=== PATIENT | female | born 1970 | race American Indian/Alaskan Native ===

== ENCOUNTER 2017-07-26 12:30 | Inpatient (IN) | payer OTHER ==
[2017-07-26 13:08] LABS: Mean Corpuscular HGB Conc 29 % (30-34); Platelet Count 260 K/mm3 (140-440); Red Blood Count 4.48 M/mm3 (3.65-5.03); White Blood Count 18.1 K/mm3 (4.5-11.0)
[2017-07-26 13:15] LABS: Hematocrit 29.8 % (30.3-42.9); Hemoglobin 8.6 gm/dl (10.1-14.3); Mean Corpuscular Hemoglobin 19 pg (28-32); Mean Corpuscular Volume 67 fl (79-97); Red Cell Distribution Width 20.5 % (13.2-15.2)
[2017-07-26 13:20] LABS: Alanine Aminotransferase 7 units/L (7-56); Albumin 3.9 g/dL (3.9-5); Albumin/Globulin Ratio 1.4 %; Alkaline Phosphatase 49 units/L (35-129); Anion Gap 16 mmol/L; BUN/Creatinine Ratio 13; Blood Urea Nitrogen 8 mg/dL (7-17); Calcium 8.2 mg/dL (8.4-10.2); Carbon Dioxide 24 mmol/L (22-30); Chloride 100.4 mmol/L (98-107); Glucose 95 mg/dL (65-100); Lipase 21 units/L (13-60); Potassium 3.7 mmol/L (3.6-5.0); Sodium 137 mmol/L (137-145); Total Protein 6.6 g/dL (6.3-8.2)
[2017-07-26] MEDS ORDERED: SUBLIMAZE IV ONE (13:46)
[2017-07-26 13:53] LABS: Basophils % (Manual) 0 % (0.0-1.8); Blastocytes % (Manual) 0 %; Eosinophils % (Manual) 0 % (0.0-4.3); Hypochromasia 2+
[2017-07-26 13:54] LABS: Anisocytosis 2+; Diff Status Complete; Microcytosis 2+; Poikilocytosis 1+
--- NOTE | 2017-07-26 15:29 | Ultrasound Report ---
Pelvic ultrasound: Pelvic pain. Endovaginal and transabdominal imaging demonstrated an anteverted uterus measuring approximately 9.8 x 12.5 x 17 cm. There is a large fundal mass which is circumscribed and diffusely inhomogeneous. It measures approximately 8.4 x 10.7 x 13 cm. Mild increased internal vascularity. The endometrium is obscured. Neither ovary is identified. No free fluid noted. Impressions: Uterine enlargement with large fundal fibroid.
--- NOTE | 2017-07-26 15:47 | Emergency Department Report ---
HPI - General Chief Complaint: Abdominal Pain Time Seen by Provider: 07/26/17 13:03 - HPI HPI: This is a 47-year-old female presents to the emergency department, sent in by a [facility] stand alone ER, with complaint of lower abdominal and/or pelvic pain with some nausea that has been going on for a few months but worsened since early this morning. The pain got to be so bad that she has been having trouble walking. She feels as if the area is distended. She has a history of uterine fibroids. She did not take anything for her symptoms prior to presentation. The patient had a CT scan of the abdomen and pelvis with IV contrast at the [facility] facility and was found to have a very large uterine fibroid with some mass effect upon the bladder. At that time as well, the patient had a pelvic exam done that showed some mild faint yellowish discharge and cervical motion tenderness. The patient was started on Rocephin and Flagyl. They're attentive that time was to admit the patient to [facility] as part of the [facility] system with the patient's insurance has lapsed and/or there was no beds available and the patient was sent to [facility] for further evaluation and treatment. She did have a fever when she arrived at their facility and has felt febrile with some chills. ED Past Medical Hx - Past Medical History Previous Medical History?: Yes Additional medical history: uterine fibroids - Surgical History Past Surgical History?: No - Social History Smoking Status: Never Smoker Substance Use Type: None - Medications Home Medications: Home Medications Medication Instructions Recorded Confirmed Last Taken Type Amoxicillin 500 mg PO TID 14 Days #90 capsule 07/29/17 Unknown Rx Doxycycline [Vibramycin CAP] 100 mg PO Q12HR 14 Days #28 capsule 07/29/17 Unknown Rx Ferrous Sulfate [Feosol 325 MG tab] 325 mg PO TID #90 tablet 07/29/17 Unknown Rx traMADol [Ultram] 50 mg PO Q6HR PRN #30 tablet 07/29/17 Unknown Rx ED Review of Systems ROS: Stated complaint: ABD PAIN Other details as noted in HPI Comment: All other systems reviewed and negative Constitutional: chills, fever Eyes: denies: eye pain, eye discharge, vision change ENT: denies: ear pain, throat pain Respiratory: denies: cough, shortness of breath, wheezing Cardiovascular: denies: chest pain, palpitations Gastrointestinal: abdominal pain, nausea Genitourinary: discharge. denies: urgency, dysuria Musculoskeletal: denies: back pain, joint swelling, arthralgia Skin: denies: rash, lesions Neurological: denies: headache, weakness, paresthesias Physical Exam - Physical Exam Vital Signs: Vital Signs 07/26/17 13:00 Temperature 99.2 F Pulse Rate 83 Respiratory 20 Rate Blood Pressure 124/87 [Left] O2 Sat by Pulse 97 Oximetry Physical Exam: GENERAL: The patient is well-developed well-nourished. HENT: Normocephalic. Atraumatic. Patient has moist mucous membranes. EYES: Extraocular motions are intact. Pupils equal reactive to light bilaterally. NECK: Supple. Trachea is midline. CHEST/LUNGS: Clear to auscultation. There is no respiratory distress noted. HEART/CARDIOVASCULAR: Regular. There is no tachycardia. There is no gallop rub or murmur. ABDOMEN: Abdomen is soft. There is some tenderness palpation to the lower half of the abdomen. mild guarding. Patient has normal bowel sounds. There is some lower abdominal and/or pelvic distention and some firmness that appears consistent with a mass. SKIN: Skin is warm and dry. NEURO: The patient is awake, alert, and oriented. The patient is cooperative. The patient has no focal neurologic deficits. The patient has normal speech. MUSCULOSKELETAL: There is no tenderness or deformity. There is no limitation range of motion. There is no evidence of acute injury. : Cervical motion tenderness. There is thin yellowish discharge in the vaginal vault. ED Course Vital Signs 07/26/17 13:00 Temperature 99.2 F Pulse Rate 83 Respiratory 20 Rate Blood Pressure 124/87 [Left] O2 Sat by Pulse 97 Oximetry - Consultations Consultation #1: I spoke with the HARDWARE INSTALLATION COORDINATOR on-call, Dr. Griffin, who did not feel that based on the patient's marital status that it is a high likelihood that the patient has pelvic inflammatory disease. I spoke with the hospitalist, Dr. Berkowitz, who has agreed to admit the patient to his service and he will consult HARDWARE INSTALLATION COORDINATOR if necessary. 07/26/17 16:35 ED Medical Decision Making - Lab Data Result diagrams: 07/29/17 07:59 07/29/17 04:46 - Radiology Data Radiology results: report reviewed Pelvic ultrasound: Pelvic pain. Endovaginal and transabdominal imaging demonstrated an anteverted uterus measuring approximately 9.8 x 12.5 x 17 cm. There is a large fundal mass which is circumscribed and diffusely inhomogeneous. It measures approximately 8.4 x 10.7 x 13 cm. Mild increased internal vascularity. The endometrium is obscured. Neither ovary is identified. No free fluid noted. Impressions: Uterine enlargement with large fundal fibroid. Transcribed By: SLY Dictated By: KACI NAVAS MD Electronically Authenticated By: KACI NAVAS MD Signed Date/Time: 07/26/17 1513 - Medical Decision Making The patient has a large fibroid tumor. It is palpable and seen on U/S. Wet prep negative. Leukocytosis with bandemia. anemia with Hb of 8.6. CT at [facility] only showed fibroid as well. No appendicitis. She had a fever at [facility] as well. With leukocytosis and fever she has SIRS criteria. G&C sent. Waiting on Urinalysis. Concern for PID but no STD or vaginal infection seen thus far and OB /SALES MARKETING DIRECTOR does not feel there is a high likelihood and the patient already recieved Rocephin and Flagyl at [facility]. She will be admitted to hospitalist. - Differential Diagnosis SIRS, Sepsis, PID, Malignancy, UTI Critical Care Time: No Critical care attestation.: If time is entered above; I have spent that time in minutes in the direct care of this critically ill patient, excluding procedure time. ED Disposition Clinical Impression: Pelvic pain, SIRS (systemic inflammatory response syndrome) Leukocytosis Qualifiers: Leukocytosis type: bandemia Qualified Code(s): D72.825 - Bandemia Abdominal pain Qualifiers: Abdominal location: lower abdomen, unspecified Qualified Code(s): R10.30 - Lower abdominal pain, unspecified Fibroid tumor Qualifiers: Uterine leiomyoma location: unspecified location Qualified Code(s): D25.9 - Leiomyoma of uterus, unspecified Anemia Qualifiers: Anemia type: other cause Other causes of anemia: acute posthemorrhagic Qualified Code(s): D62 - Acute posthemorrhagic anemia Disposition: OP ADMIT IP TO THIS HOSP Is pt being admited?: Yes Condition: Stable Time of Disposition: 17:39
[2017-07-26] MEDS ORDERED: NACL 0.9% 1000 ML 1,000 ML IV ONE (17:46)
[2017-07-26] MEDS ORDERED: TYLENOL PO ONE (18:14)
--- NOTE | 2017-07-26 22:06 | History and Physical Report ---
History of Present Illness Date of examination: 07/26/17 Date of admission: 07/26/17 17:44 Chief complaint: CC: Lower abd pain -severe 1 mth History of present illness: JAIRO: 47-year-old AAFpresents to the emergency department,with complaint of lower abdominal and/or pelvic pain with some nausea that has been going on for a few months but worsened since early this morning. The pain got to be so bad that she has been having trouble walking. She feels as if the area is distended. She has a history of uterine fibroids. She did not take anything for her symptoms prior to presentation. The patient had a CT scan of the abdomen and pelvis with IV contrast at the [place] facility and was found to have a very large uterine fibroid with some mass effect upon the bladder. At that time as well, the patient had a pelvic exam done that showed some mild faint yellowish discharge and cervical motion tenderness. The patient was started on Rocephin and Flagyl. They're attentive that time was to admit the patient to [facility] as part of the [place] system with the patient's insurance has lapsed and/or there was no beds available and the patient was sent to [facility] for further evaluation and treatment. She did have a fever when she arrived at their facility and has felt febrile with some chills. Past Medical History Previous Medical History?: Yes Additional medical history: uterine fibroids Surgical History Past Surgical History?: No Social History Smoking Status: Never Smoker Substance Use Type: None - Medications Home Medications: Home Medications Medication Instructions Recorded Confirmed Last Taken Type No Known Home Medications [No 07/26/17 07/26/17 Unknown History Reported Home Medications] Review of Systems ROS: Stated complaint: ABD PAIN Other details as noted in HPI Comment: All other systems reviewed and negative Constitutional: chills, fever Eyes: denies: eye pain, eye discharge, vision change ENT: denies: ear pain, throat pain Respiratory: denies: cough, shortness of breath, wheezing Cardiovascular: denies: chest pain, palpitations Gastrointestinal: abdominal pain, nausea Genitourinary: discharge. denies: urgency, dysuria Musculoskeletal: denies: back pain, joint swelling, arthralgia Skin: denies: rash, lesions Neurological: denies: headache, weakness, paresthesias Medications and Allergies Allergies Allergy/AdvReac Type Severity Reaction Status Date / Time No Known Allergies Allergy Verified 07/26/17 12:44 Home Medications Medication Instructions Recorded Confirmed Last Taken Type No Known Home Medications [No 07/26/17 07/26/17 Unknown History Reported Home Medications] Active Meds: Active Medications Heparin Sodium (Porcine) (Heparin) 5,000 unit SUB-Q Q8HR LESLEE Exam - Physical Exam Narrative exam: In some distress sec to abd pain - Constitutional Vitals: Temp Pulse Resp BP Pulse Ox 102.9 F H 57 L 18 120/78 99 07/26/17 21:11 07/26/17 19:38 07/26/17 21:11 07/26/17 21:11 07/26/17 19:50 General appearance: Present: mild distress, well-nourished - EENT Eyes: Present: PERRL ENT: hearing intact, clear oral mucosa - Neck Neck: Present: supple, normal ROM - Respiratory Respiratory effort: normal Respiratory: bilateral: CTA - Cardiovascular Heart rate: 80 Rhythm: regular Heart Sounds: Present: S1 & S2. Absent: rub, click - Extremities Extremities: no ischemia, pulses intact, pulses symmetrical, No edema Peripheral Pulses: within normal limits - Abdominal General gastrointestinal: Present: soft, tender, distended, normal bowel sounds Localized gastrointestinal: tender: suprapubic, guarding: suprapubic Female genitourinary: Present: deferred, normal - Rectal Rectal Exam: deferred - Integumentary Integumentary: Present: clear, warm, dry - Musculoskeletal Musculoskeletal: gait normal, strength equal bilaterally - Psychiatric Psychiatric: appropriate mood/affect, intact judgment & insight - Neurologic Neurologic: CNII-XII intact, moves all extremities - Allied Health Allied health notes reviewed: nursing, case management Results - Labs CBC & Chem 7: 07/26/17 12:49 07/26/17 12:49 Labs: Laboratory Last Values WBC 18.1 K/mm3 (4.5-11.0) H 07/26/17 12:49 RBC 4.48 M/mm3 (3.65-5.03) 07/26/17 12:49 Hgb 8.6 gm/dl (10.1-14.3) L 07/26/17 12:49 Hct 29.8 % (30.3-42.9) L 07/26/17 12:49 MCV 67 fl (79-97) L 07/26/17 12:49 MCH 19 pg (28-32) L 07/26/17 12:49 MCHC 29 % (30-34) L 07/26/17 12:49 RDW 20.5 % (13.2-15.2) H 07/26/17 12:49 Plt Count 260 K/mm3 (140-440) 07/26/17 12:49 Add Manual Diff Complete 07/26/17 12:49 Total Counted 100 07/26/17 12:49 Seg Neutrophils % Merchandising Specialist 07/26/17 12:49 Seg Neuts % (Manual) 83.0 % (40.0-70.0) H 07/26/17 12:49 Band Neutrophils % 13.0 % 07/26/17 12:49 Lymphocytes % (Manual) 1.0 % (13.4-35.0) L 07/26/17 12:49 Reactive Lymphs % (Man) 0 % 07/26/17 12:49 Monocytes % (Manual) 3.0 % (0.0-7.3) 07/26/17 12:49 Eosinophils % (Manual) 0 % (0.0-4.3) 07/26/17 12:49 Basophils % (Manual) 0 % (0.0-1.8) 07/26/17 12:49 Metamyelocytes % 0 % 07/26/17 12:49 Myelocytes % 0 % 07/26/17 12:49 Promyelocytes % 0 % 07/26/17 12:49 Blast Cells % 0 % 07/26/17 12:49 Nucleated RBC % Not Reportable 07/26/17 12:49 Seg Neutrophils # Man 15.0 K/mm3 (1.8-7.7) H 07/26/17 12:49 Band Neutrophils # 2.4 K/mm3 07/26/17 12:49 Lymphocytes # (Manual) 0.2 K/mm3 (1.2-5.4) L 07/26/17 12:49 Abs React Lymphs (Man) 0.0 K/mm3 07/26/17 12:49 Monocytes # (Manual) 0.5 K/mm3 (0.0-0.8) 07/26/17 12:49 Eosinophils # (Manual) 0.0 K/mm3 (0.0-0.4) 07/26/17 12:49 Basophils # (Manual) 0.0 K/mm3 (0.0-0.1) 07/26/17 12:49 Metamyelocytes # 0.0 K/mm3 07/26/17 12:49 Myelocytes # 0.0 K/mm3 07/26/17 12:49 Promyelocytes # 0.0 K/mm3 07/26/17 12:49 Blast Cells # 0.0 K/mm3 07/26/17 12:49 WBC Morphology Not Reportable 07/26/17 12:49 Hypersegmented Neuts Not Reportable 07/26/17 12:49 Hyposegmented Neuts Not Reportable 07/26/17 12:49 Hypogranular Neuts Not Reportable 07/26/17 12:49 Smudge Cells Not Reportable 07/26/17 12:49 Toxic Granulation Not Reportable 07/26/17 12:49 Toxic Vacuolation Not Reportable 07/26/17 12:49 Dohle Bodies Not Reportable 07/26/17 12:49 Pelger-Huet Anomaly Not Reportable 07/26/17 12:49 Aishwarya Rods Not Reportable 07/26/17 12:49 Platelet Estimate Not Reportable 07/26/17 12:49 Clumped Platelets Not Reportable 07/26/17 12:49 Plt Clumps, EDTA Not Reportable 07/26/17 12:49 Large Platelets Not Reportable 07/26/17 12:49 Giant Platelets Not Reportable 07/26/17 12:49 Platelet Satelliting Not Reportable 07/26/17 12:49 Plt Morphology Comment Not Reportable 07/26/17 12:49 RBC Morphology Not Reportable 07/26/17 12:49 Dimorphic RBCs Not Reportable 07/26/17 12:49 Polychromasia Not Reportable 07/26/17 12:49 Hypochromasia 2+ 07/26/17 12:49 Poikilocytosis 1+ 07/26/17 12:49 Anisocytosis 2+ 07/26/17 12:49 Microcytosis 2+ 07/26/17 12:49 Macrocytosis Not Reportable 07/26/17 12:49 Spherocytes Not Reportable 07/26/17 12:49 Pappenheimer Bodies Not Reportable 07/26/17 12:49 Sickle Cells Not Reportable 07/26/17 12:49 Target Cells Not Reportable 07/26/17 12:49 Tear Drop Cells Not Reportable 07/26/17 12:49 Ovalocytes Not Reportable 07/26/17 12:49 Helmet Cells Not Reportable 07/26/17 12:49 Torres-Matthews Bodies Not Reportable 07/26/17 12:49 Bettles Field Rings Not Reportable 07/26/17 12:49 Paterson Cells Not Reportable 07/26/17 12:49 Bite Cells Not Reportable 07/26/17 12:49 Crenated Cell Not Reportable 07/26/17 12:49 Elliptocytes Not Reportable 07/26/17 12:49 Acanthocytes (Spur) Not Reportable 07/26/17 12:49 Rouleaux Not Reportable 07/26/17 12:49 Hemoglobin C Crystals Not Reportable 07/26/17 12:49 Schistocytes Not Reportable 07/26/17 12:49 Malaria parasites Not Reportable 07/26/17 12:49 Pop Bodies Not Reportable 07/26/17 12:49 Hem Pathologist Commnt No 07/26/17 12:49 Sodium 137 mmol/L (137-145) 07/26/17 12:49 Potassium 3.7 mmol/L (3.6-5.0) 07/26/17 12:49 Chloride 100.4 mmol/L (98-107) 07/26/17 12:49 Carbon Dioxide 24 mmol/L (22-30) 07/26/17 12:49 Anion Gap 16 mmol/L 07/26/17 12:49 BUN 8 mg/dL (7-17) 07/26/17 12:49 Creatinine 0.6 mg/dL (0.7-1.2) L 07/26/17 12:49 Estimated GFR > 60 ml/min 07/26/17 12:49 BUN/Creatinine Ratio 13 % 07/26/17 12:49 Glucose 95 mg/dL (65-100) 07/26/17 12:49 Lactic Acid 1.00 mmol/L (0.7-2.0) 07/26/17 13:59 Calcium 8.2 mg/dL (8.4-10.2) L 07/26/17 12:49 Total Bilirubin 0.60 mg/dL (0.1-1.2) 07/26/17 12:49 AST 16 units/L (5-40) 07/26/17 12:49 ALT 7 units/L (7-56) 07/26/17 12:49 Alkaline Phosphatase 49 units/L (35-129) 07/26/17 12:49 Total Protein 6.6 g/dL (6.3-8.2) 07/26/17 12:49 Albumin 3.9 g/dL (3.9-5) 07/26/17 12:49 Albumin/Globulin Ratio 1.4 % 07/26/17 12:49 Lipase 21 units/L (13-60) 07/26/17 12:49 HCG, Qual Negative (Negative) 07/26/17 13:53 Short CBC 07/26/17 Range/Units 12:49 WBC 18.1 H (4.5-11.0) K/mm3 Hgb 8.6 L (10.1-14.3) gm/dl Hct 29.8 L (30.3-42.9) % Plt Count 260 (140-440) K/mm3 BMP 07/26/17 12:49 Sodium 137 Potassium 3.7 Chloride 100.4 Carbon Dioxide 24 BUN 8 Creatinine 0.6 L Glucose 95 Calcium 8.2 L Liver Function 07/26/17 Range/Units 12:49 Total Bilirubin 0.60 (0.1-1.2) mg/dL AST 16 (5-40) units/L ALT 7 (7-56) units/L Alkaline Phosphatase 49 (35-129) units/L Albumin 3.9 (3.9-5) g/dL - Imaging and Cardiology CT scan - abdomen: report reviewed Assessment and Plan Advance Directives: Yes (Full code) VTE prophylaxis?: Chemical Plan of care discussed with patient/family: Yes - Patient Problems (1) SIRS (systemic inflammatory response syndrome) Current Visit: Yes Status: Acute Plan to address problem: Sec to PID .High WBC count Initiated on Rocephin Flagyl and Doxycycline. Cultures pending. ID and Cruise Counselor Consult requested (2) PID (acute pelvic inflammatory disease) Current Visit: Yes Status: Acute Plan to address problem: Initiated on Rocephin Flagyl and Doxycycline. Cultures pending. ID and Cruise Counselor Consult requested (3) Anemia Current Visit: Yes Status: Chronic Qualifiers: Anemia type: other cause Iron deficiency anemia type: I Vitamin B12 deficiency anemia type: V Folate deficiency anemia type: F Bone marrow failure anemia type: B Hemolytic anemia type: H Other causes of anemia: acute posthemorrhagic Chronic kidney disease stage: C Qualified Code(s): D62 - Acute posthemorrhagic anemia Plan to address problem: Sec to Menorrhagia Uterine fibroids. to initiate on Iron supplements if iron studies low. (4) DVT prophylaxis Current Visit: Yes Status: Acute Plan to address problem: scd's only
[2017-07-26] MEDS: TYLENOL PO PRN (22:36)
[2017-07-26] MEDS: HEPARIN SUB-Q SCH (22:37)
[2017-07-27] MEDS: HEPARIN SUB-Q SCH ×3 (05:25→22:34)
[2017-07-27] MEDS ORDERED: FLAGYL 500 MG/100 ML 500 MG/100 ML BAG IV SCH (06:19)
[2017-07-27] MEDS: ROCEPHIN/NS 2 GM/100 ML 2 GM/100 ML BAG IV SCH (07:26)
[2017-07-27] MEDS: TYLENOL PO PRN (07:34)
[2017-07-27] MEDS: VIBRAMYCIN PO SCH ×2 (09:51→22:35)
--- NOTE | 2017-07-27 12:24 | Progress Note ---
<FEDE BARRETO - Last Filed: 07/27/17 15:00> Assessment and Plan Assessment and plan: Patient is a 47-year-old AAF who presented to the emergency department, one day ago with complaint of lower abdominal and/or pelvic pain with some nausea that has been going on for a few months but worsened since early yesterday morning. The pain got to be so bad that she has been having trouble walking. She feels as if the area is distended. She has a history of uterine fibroids. She did not take anything for her symptoms prior to presentation. The patient had a CT scan of the abdomen and pelvis with IV contrast at the [facility] and was found to have a very large uterine fibroid with some mass effect upon the bladder. At that time as well, the patient had a pelvic exam done that showed some mild faint yellowish discharge and cervical motion tenderness. The patient was started on Rocephin and Flagyl. SIRS Sec to PID High WBC count Continue Rocephin Flagyl and Doxycycline. Cultures pending. ID and Rn X Ray Consult requested Acute PID Continue Flagyl and Doxycycline. Cultures pending. ID and Rn X Ray Consult requested Anemia Secondary to Menorrhagia Uterine fibroids. initiate on Iron supplements if iron studies low. DVT prophylaxis scd's only History Interval history: Patient is laying comfortably in bed. Denies abdominal pain at this time but states that pain is intermittent and is 8-10/10 when it's present. She says that her headache is intermittent as well, also 8-10/10. Pain medication is helping the pain but when it wears off, headache and abdominal pain returns. She 's nauseous but denies vomiting Hospitalist Physical - Constitutional Vitals: Temp Pulse Resp BP Pulse Ox 98.9 F 57 L 18 107/74 99 07/27/17 07:27 07/26/17 19:38 07/27/17 07:27 07/27/17 07:27 07/26/17 19:50 General appearance: Present: no acute distress, well-nourished - EENT Eyes: Present: PERRL, EOM intact ENT: hearing intact, dentition normal - Neck Neck: Present: supple, normal ROM - Respiratory Respiratory effort: normal Respiratory: bilateral: CTA - Cardiovascular Rhythm: regular Heart Sounds: Absent: gallop, rub, click - Extremities Extremities: no ischemia, pulses intact, No edema, normal temperature, normal color Peripheral Pulses: within normal limits - Abdominal General gastrointestinal: soft, tender Results - Labs CBC & Chem 7: 07/26/17 12:49 07/26/17 12:49 Labs: Laboratory Last Values WBC 18.1 K/mm3 (4.5-11.0) H 07/26/17 12:49 RBC 4.48 M/mm3 (3.65-5.03) 07/26/17 12:49 Hgb 8.6 gm/dl (10.1-14.3) L 07/26/17 12:49 Hct 29.8 % (30.3-42.9) L 07/26/17 12:49 MCV 67 fl (79-97) L 07/26/17 12:49 MCH 19 pg (28-32) L 07/26/17 12:49 MCHC 29 % (30-34) L 07/26/17 12:49 RDW 20.5 % (13.2-15.2) H 07/26/17 12:49 Plt Count 260 K/mm3 (140-440) 07/26/17 12:49 Add Manual Diff Complete 07/26/17 12:49 Total Counted 100 07/26/17 12:49 Seg Neutrophils % Residential Sales Representative 07/26/17 12:49 Seg Neuts % (Manual) 83.0 % (40.0-70.0) H 07/26/17 12:49 Band Neutrophils % 13.0 % 07/26/17 12:49 Lymphocytes % (Manual) 1.0 % (13.4-35.0) L 07/26/17 12:49 Reactive Lymphs % (Man) 0 % 07/26/17 12:49 Monocytes % (Manual) 3.0 % (0.0-7.3) 07/26/17 12:49 Eosinophils % (Manual) 0 % (0.0-4.3) 07/26/17 12:49 Basophils % (Manual) 0 % (0.0-1.8) 07/26/17 12:49 Metamyelocytes % 0 % 07/26/17 12:49 Myelocytes % 0 % 07/26/17 12:49 Promyelocytes % 0 % 07/26/17 12:49 Blast Cells % 0 % 07/26/17 12:49 Nucleated RBC % Not Reportable 07/26/17 12:49 Seg Neutrophils # Man 15.0 K/mm3 (1.8-7.7) H 07/26/17 12:49 Band Neutrophils # 2.4 K/mm3 07/26/17 12:49 Lymphocytes # (Manual) 0.2 K/mm3 (1.2-5.4) L 07/26/17 12:49 Abs React Lymphs (Man) 0.0 K/mm3 07/26/17 12:49 Monocytes # (Manual) 0.5 K/mm3 (0.0-0.8) 07/26/17 12:49 Eosinophils # (Manual) 0.0 K/mm3 (0.0-0.4) 07/26/17 12:49 Basophils # (Manual) 0.0 K/mm3 (0.0-0.1) 07/26/17 12:49 Metamyelocytes # 0.0 K/mm3 07/26/17 12:49 Myelocytes # 0.0 K/mm3 07/26/17 12:49 Promyelocytes # 0.0 K/mm3 07/26/17 12:49 Blast Cells # 0.0 K/mm3 07/26/17 12:49 WBC Morphology Not Reportable 07/26/17 12:49 Hypersegmented Neuts Not Reportable 07/26/17 12:49 Hyposegmented Neuts Not Reportable 07/26/17 12:49 Hypogranular Neuts Not Reportable 07/26/17 12:49 Smudge Cells Not Reportable 07/26/17 12:49 Toxic Granulation Not Reportable 07/26/17 12:49 Toxic Vacuolation Not Reportable 07/26/17 12:49 Dohle Bodies Not Reportable 07/26/17 12:49 Pelger-Huet Anomaly Not Reportable 07/26/17 12:49 Aishwarya Rods Not Reportable 07/26/17 12:49 Platelet Estimate Not Reportable 07/26/17 12:49 Clumped Platelets Not Reportable 07/26/17 12:49 Plt Clumps, EDTA Not Reportable 07/26/17 12:49 Large Platelets Not Reportable 07/26/17 12:49 Giant Platelets Not Reportable 07/26/17 12:49 Platelet Satelliting Not Reportable 07/26/17 12:49 Plt Morphology Comment Not Reportable 07/26/17 12:49 RBC Morphology Not Reportable 07/26/17 12:49 Dimorphic RBCs Not Reportable 07/26/17 12:49 Polychromasia Not Reportable 07/26/17 12:49 Hypochromasia 2+ 07/26/17 12:49 Poikilocytosis 1+ 07/26/17 12:49 Anisocytosis 2+ 07/26/17 12:49 Microcytosis 2+ 07/26/17 12:49 Macrocytosis Not Reportable 07/26/17 12:49 Spherocytes Not Reportable 07/26/17 12:49 Pappenheimer Bodies Not Reportable 07/26/17 12:49 Sickle Cells Not Reportable 07/26/17 12:49 Target Cells Not Reportable 07/26/17 12:49 Tear Drop Cells Not Reportable 07/26/17 12:49 Ovalocytes Not Reportable 07/26/17 12:49 Helmet Cells Not Reportable 07/26/17 12:49 Torres-Carman Bodies Not Reportable 07/26/17 12:49 Delta Rings Not Reportable 07/26/17 12:49 Audi Cells Not Reportable 07/26/17 12:49 Bite Cells Not Reportable 07/26/17 12:49 Crenated Cell Not Reportable 07/26/17 12:49 Elliptocytes Not Reportable 07/26/17 12:49 Acanthocytes (Spur) Not Reportable 07/26/17 12:49 Rouleaux Not Reportable 07/26/17 12:49 Hemoglobin C Crystals Not Reportable 07/26/17 12:49 Schistocytes Not Reportable 07/26/17 12:49 Malaria parasites Not Reportable 07/26/17 12:49 Pop Bodies Not Reportable 07/26/17 12:49 Hem Pathologist Commnt No 07/26/17 12:49 Sodium 137 mmol/L (137-145) 07/26/17 12:49 Potassium 3.7 mmol/L (3.6-5.0) 07/26/17 12:49 Chloride 100.4 mmol/L (98-107) 07/26/17 12:49 Carbon Dioxide 24 mmol/L (22-30) 07/26/17 12:49 Anion Gap 16 mmol/L 07/26/17 12:49 BUN 8 mg/dL (7-17) 07/26/17 12:49 Creatinine 0.6 mg/dL (0.7-1.2) L 07/26/17 12:49 Estimated GFR > 60 ml/min 07/26/17 12:49 BUN/Creatinine Ratio 13 % 07/26/17 12:49 Glucose 95 mg/dL (65-100) 07/26/17 12:49 Lactic Acid 1.00 mmol/L (0.7-2.0) 07/26/17 13:59 Calcium 8.2 mg/dL (8.4-10.2) L 07/26/17 12:49 Iron 14 ug/dL (37-170) L 07/27/17 06:39 TIBC 290 mcg/dL (250-450) 07/27/17 06:39 % Saturation 4.83 % 07/27/17 06:39 Transferrin 264 mg/dl (192-382) 07/27/17 06:39 Total Bilirubin 0.60 mg/dL (0.1-1.2) 07/26/17 12:49 AST 16 units/L (5-40) 07/26/17 12:49 ALT 7 units/L (7-56) 07/26/17 12:49 Alkaline Phosphatase 49 units/L (35-129) 07/26/17 12:49 Total Protein 6.6 g/dL (6.3-8.2) 07/26/17 12:49 Albumin 3.9 g/dL (3.9-5) 07/26/17 12:49 Albumin/Globulin Ratio 1.4 % 07/26/17 12:49 Lipase 21 units/L (13-60) 07/26/17 12:49 Vitamin B12 289.3 pg/mL (211-911) 07/27/17 06:39 HCG, Qual Negative (Negative) 07/26/17 13:53 - Imaging and Cardiology Imaging and Cardiology: Transvaginal and pelvic U/S showed uterine enlargement and large fundal fibroid , Wet Prep was negative for yeast or trichomonas <LINDA TAPIA - Last Filed: 07/27/17 15:21> Assessment and Plan Assessment and plan: I saw and evaluated the patient. I agree with the findings and the plan of care as documented in the Physician Assistants~note, with the following corrections and additions. Sepsis: Continue abx, Lactate was initally checked and was normal but no repeat when patient had fever. NURSING Education provided. Will monitor and repeat if fever. Awaiting BURNING MACHINE OPERATOR eval Ultrasound reports noted. Hospitalist Physical - Constitutional Vitals: Temp Pulse Resp BP Pulse Ox 98.9 F 57 L 18 107/74 99 07/27/17 07:27 07/26/17 19:38 07/27/17 07:27 07/27/17 07:27 07/26/17 19:50 Results - Labs CBC & Chem 7: 07/26/17 12:49 07/26/17 12:49 Labs: Laboratory Last Values WBC 18.1 K/mm3 (4.5-11.0) H 07/26/17 12:49 RBC 4.48 M/mm3 (3.65-5.03) 07/26/17 12:49 Hgb 8.6 gm/dl (10.1-14.3) L 07/26/17 12:49 Hct 29.8 % (30.3-42.9) L 07/26/17 12:49 MCV 67 fl (79-97) L 07/26/17 12:49 MCH 19 pg (28-32) L 07/26/17 12:49 MCHC 29 % (30-34) L 07/26/17 12:49 RDW 20.5 % (13.2-15.2) H 07/26/17 12:49 Plt Count 260 K/mm3 (140-440) 07/26/17 12:49 Add Manual Diff Complete 07/26/17 12:49 Total Counted 100 07/26/17 12:49 Seg Neutrophils % Residential Sales Representative 07/26/17 12:49 Seg Neuts % (Manual) 83.0 % (40.0-70.0) H 07/26/17 12:49 Band Neutrophils % 13.0 % 07/26/17 12:49 Lymphocytes % (Manual) 1.0 % (13.4-35.0) L 07/26/17 12:49 Reactive Lymphs % (Man) 0 % 07/26/17 12:49 Monocytes % (Manual) 3.0 % (0.0-7.3) 07/26/17 12:49 Eosinophils % (Manual) 0 % (0.0-4.3) 07/26/17 12:49 Basophils % (Manual) 0 % (0.0-1.8) 07/26/17 12:49 Metamyelocytes % 0 % 07/26/17 12:49 Myelocytes % 0 % 07/26/17 12:49 Promyelocytes % 0 % 07/26/17 12:49 Blast Cells % 0 % 07/26/17 12:49 Nucleated RBC % Not Reportable 07/26/17 12:49 Seg Neutrophils # Man 15.0 K/mm3 (1.8-7.7) H 07/26/17 12:49 Band Neutrophils # 2.4 K/mm3 07/26/17 12:49 Lymphocytes # (Manual) 0.2 K/mm3 (1.2-5.4) L 07/26/17 12:49 Abs React Lymphs (Man) 0.0 K/mm3 07/26/17 12:49 Monocytes # (Manual) 0.5 K/mm3 (0.0-0.8) 07/26/17 12:49 Eosinophils # (Manual) 0.0 K/mm3 (0.0-0.4) 07/26/17 12:49 Basophils # (Manual) 0.0 K/mm3 (0.0-0.1) 07/26/17 12:49 Metamyelocytes # 0.0 K/mm3 07/26/17 12:49 Myelocytes # 0.0 K/mm3 07/26/17 12:49 Promyelocytes # 0.0 K/mm3 07/26/17 12:49 Blast Cells # 0.0 K/mm3 07/26/17 12:49 WBC Morphology Not Reportable 07/26/17 12:49 Hypersegmented Neuts Not Reportable 07/26/17 12:49 Hyposegmented Neuts Not Reportable 07/26/17 12:49 Hypogranular Neuts Not Reportable 07/26/17 12:49 Smudge Cells Not Reportable 07/26/17 12:49 Toxic Granulation Not Reportable 07/26/17 12:49 Toxic Vacuolation Not Reportable 07/26/17 12:49 Dohle Bodies Not Reportable 07/26/17 12:49 Pelger-Huet Anomaly Not Reportable 07/26/17 12:49 Aishwarya Rods Not Reportable 07/26/17 12:49 Platelet Estimate Not Reportable 07/26/17 12:49 Clumped Platelets Not Reportable 07/26/17 12:49 Plt Clumps, EDTA Not Reportable 07/26/17 12:49 Large Platelets Not Reportable 07/26/17 12:49 Giant Platelets Not Reportable 07/26/17 12:49 Platelet Satelliting Not Reportable 07/26/17 12:49 Plt Morphology Comment Not Reportable 07/26/17 12:49 RBC Morphology Not Reportable 07/26/17 12:49 Dimorphic RBCs Not Reportable 07/26/17 12:49 Polychromasia Not Reportable 07/26/17 12:49 Hypochromasia 2+ 07/26/17 12:49 Poikilocytosis 1+ 07/26/17 12:49 Anisocytosis 2+ 07/26/17 12:49 Microcytosis 2+ 07/26/17 12:49 Macrocytosis Not Reportable 07/26/17 12:49 Spherocytes Not Reportable 07/26/17 12:49 Pappenheimer Bodies Not Reportable 07/26/17 12:49 Sickle Cells Not Reportable 07/26/17 12:49 Target Cells Not Reportable 07/26/17 12:49 Tear Drop Cells Not Reportable 07/26/17 12:49 Ovalocytes Not Reportable 07/26/17 12:49 Helmet Cells Not Reportable 07/26/17 12:49 Torres-Carman Bodies Not Reportable 07/26/17 12:49 Delta Rings Not Reportable 07/26/17 12:49 Audi Cells Not Reportable 07/26/17 12:49 Bite Cells Not Reportable 07/26/17 12:49 Crenated Cell Not Reportable 07/26/17 12:49 Elliptocytes Not Reportable 07/26/17 12:49 Acanthocytes (Spur) Not Reportable 07/26/17 12:49 Rouleaux Not Reportable 07/26/17 12:49 Hemoglobin C Crystals Not Reportable 07/26/17 12:49 Schistocytes Not Reportable 07/26/17 12:49 Malaria parasites Not Reportable 07/26/17 12:49 Pop Bodies Not Reportable 07/26/17 12:49 Hem Pathologist Commnt No 07/26/17 12:49 Sodium 137 mmol/L (137-145) 07/26/17 12:49 Potassium 3.7 mmol/L (3.6-5.0) 07/26/17 12:49 Chloride 100.4 mmol/L (98-107) 07/26/17 12:49 Carbon Dioxide 24 mmol/L (22-30) 07/26/17 12:49 Anion Gap 16 mmol/L 07/26/17 12:49 BUN 8 mg/dL (7-17) 07/26/17 12:49 Creatinine 0.6 mg/dL (0.7-1.2) L 07/26/17 12:49 Estimated GFR > 60 ml/min 07/26/17 12:49 BUN/Creatinine Ratio 13 % 07/26/17 12:49 Glucose 95 mg/dL (65-100) 07/26/17 12:49 Lactic Acid 1.00 mmol/L (0.7-2.0) 07/26/17 13:59 Calcium 8.2 mg/dL (8.4-10.2) L 07/26/17 12:49 Iron 14 ug/dL (37-170) L 07/27/17 06:39 TIBC 290 mcg/dL (250-450) 07/27/17 06:39 % Saturation 4.83 % 07/27/17 06:39 Transferrin 264 mg/dl (192-382) 07/27/17 06:39 Total Bilirubin 0.60 mg/dL (0.1-1.2) 07/26/17 12:49 AST 16 units/L (5-40) 07/26/17 12:49 ALT 7 units/L (7-56) 07/26/17 12:49 Alkaline Phosphatase 49 units/L (35-129) 07/26/17 12:49 C-Reactive Protein 8.30 mg/dL (0.00-1.30) H 07/27/17 14:04 Total Protein 6.6 g/dL (6.3-8.2) 07/26/17 12:49 Albumin 3.9 g/dL (3.9-5) 07/26/17 12:49 Albumin/Globulin Ratio 1.4 % 07/26/17 12:49 Lipase 21 units/L (13-60) 07/26/17 12:49 Vitamin B12 289.3 pg/mL (211-911) 07/27/17 06:39 HCG, Qual Negative (Negative) 07/26/17 13:53 Urine Color Yellow (Yellow) 07/27/17 12:47 Urine Turbidity Clear (Clear) 07/27/17 12:47 Urine pH 6.0 (5.0-7.0) 07/27/17 12:47 Ur Specific Rector 1.012 (1.003-1.030) 07/27/17 12:47 Urine Protein 30 mg/dl mg/dL (Negative) 07/27/17 12:47 Urine Glucose (UA) Neg mg/dL (Negative) 07/27/17 12:47 Urine Ketones Neg mg/dL (Negative) 07/27/17 12:47 Urine Blood Neg (Negative) 07/27/17 12:47 Urine Nitrite Neg (Negative) 07/27/17 12:47 Urine Bilirubin Neg (Negative) 07/27/17 12:47 Urine Urobilinogen < 2.0 mg/dL (<2.0) 07/27/17 12:47 Ur Leukocyte Esterase Tr (Negative) 07/27/17 12:47 Urine WBC (Auto) 4.0 /HPF (0.0-6.0) 07/27/17 12:47 Urine RBC (Auto) < 1.0 /HPF (0.0-6.0) 07/27/17 12:47 U Epithel Cells (Auto) 1.0 /HPF (0-13.0) 07/27/17 12:47 Urine Mucus Few /HPF 07/27/17 12:47 HIV 1&2 Antibody Rapid Non react (Non React) 07/27/17 14:04 HIV P24 Antigen Non react (Non React) 07/27/17 14:04
--- NOTE | 2017-07-27 12:49 | Consultation ---
History of Present Illness - Reason for Consult Consult date: 07/27/17 PID Requesting physician: ARMANDO CUELLAR - History of Present Illness 47 yo female with history of uterine fibroids admitted on 07/23/17 due to 4 week history of progressive suprapubic and pelvic pain associated with mild yellowish vaginal discharge non itching. Pelvic pain was on/off, 7/10, no radiations. Last week she noted also subjective fever. Patient was evaluated at a [facility] and a CT scan of the abdomen and pelvis with IV contrast found to have a very large uterine fibroid with some mass effect upon the bladder. She also had a pelvic exam done that showed some mild faint yellowish discharge and cervical motion tenderness. She is for last 12 months, new . In the ED, temp 99.2 went to 102.9, HR 83, BP 124/87, WBC 18, Hg 8.6, plat 260, bands 13. Microbiology: Blood cultures: 07/26 ngtd Urine cultures: Wet prep: no club cells or yeast or trichomonas Current Antimicrobials: Doxycycline Ceftriaxone Previous Antimicrobials: Past History Past Medical History: other (uterine fibroids ) Social history: no significant social history. denies: smoking, alcohol abuse, IV drug use Medications and Allergies Allergies Allergy/AdvReac Type Severity Reaction Status Date / Time No Known Allergies Allergy Verified 07/26/17 12:44 Home Medications Medication Instructions Recorded Confirmed Last Taken Type No Known Home Medications [No 07/26/17 07/26/17 Unknown History Reported Home Medications] Active Meds: Active Medications Acetaminophen (Tylenol) 650 mg PO Q4H PRN PRN Reason: Pain, Mild (1-3) Last Admin: 07/27/17 07:34 Dose: 650 mg Doxycycline Hyclate (Vibramycin) 100 mg PO BID LESLEE Last Admin: 07/27/17 09:51 Dose: 100 mg Heparin Sodium (Porcine) (Heparin) 5,000 unit SUB-Q Q8HR LESLEE Last Admin: 07/27/17 05:25 Dose: 5,000 unit Ceftriaxone Sodium (Rocephin/Ns 2 Gm/100 Ml) 2 gm in 100 mls @ 200 mls/hr IV Q24HR LESLEE PRN Reason: Protocol Last Admin: 07/27/17 07:26 Dose: 200 mls/hr Metronidazole (Flagyl) 500 mg PO Q8HR LESLEE Review of Systems All systems: negative (positive nausea, no vomiting, no diarrhea) Physical Examination - Physical Exam Narrative exam: General appearance: Alert in NAD, conversant Eyes: anicteric sclerae, moist conjunctivae; no lid-lag; PERRLA HENT: Atraumatic; oropharynx clear with moist mucous membranes and no mucosal ulcerations/no oral thrush; normal hard and soft palate. Neck: Trachea midline; supple, no thyromegaly or lymphadenopathy Lungs: CTA, with normal respiratory effort and no intercostal retractions CV: RRR, no murmurs Abdomen: Soft, +SP tenderness Extremities: No peripheral edema or extremity lymphadenopathy Skin: Normal temperature, turgor and texture; no rash, ulcers or subcutaneous nodules Psych: Appropriate affect, alert and oriented to person, place and time. Neuro: alert and oriented x 3. Moving all extermities Lines: No CVL / PICC - Constitutional Vitals: Vital Signs Temp Pulse Resp BP Pulse Ox 98.9 F 57 L 18 107/74 99 07/27/17 07:27 07/26/17 19:38 07/27/17 07:27 07/27/17 07:27 07/26/17 19:50 Temperature -Last 24 Hours Temperature 98.9 F Temperature 98.9 F Temperature 102.9 F Temperature 102.9 F Temperature 100.8 F Results - Labs CBC & Chem 7: 07/26/17 12:49 07/26/17 12:49 Labs: Abnormal lab results 07/27/17 Range/Units 06:39 Iron 14 L (37-170) ug/dL Assessment and Plan Assessment: 1) Sepsis: Present on admission, manifested by fever, leukocytosis, bandemia. Etiology most likely PID. 2) PID: -CT scan of the abdomen and pelvis with IV contrast found to have a very large uterine fibroid with some mass effect upon the bladder. -Pelvic exam done that showed some mild faint yellowish discharge and cervical motion tenderness. 3) Uterine fibroids Plan: -follow-up blood cultures -check UA and urine culture -continue ceftriaxone and doxycycline for now -check HIV, GC, Chalmydia, RPR -CRP -upon discharge will continue doxycycline 100 mg po q12h for [address] Cuellar for your consultation, will follow up with you. Gi Sampson MD Infectious Diseases Specialist [facility] ([facility]) M [phone] O [phone]
[2017-07-27 13:19] LABS: Bilirubin,Urine NEG (Negative); Blood,Urine NEG (Negative); Ketones,Urine NEG (Negative); Leukocyte Esterase,Urine TR (Negative); Mucus,Urine FEW /HPF; Nitrite,Urine NEG (Negative); RBC,Urine < 1.0 /HPF (0.0-6.0); Urobilinogen,Urine < 2.0 mg/dL (<2.0)
[2017-07-27] MEDS: FLAGYL PO SCH ×2 (13:31→22:35)
[2017-07-27] MEDS ORDERED: FLAGYL PO SCH (14:00)
[2017-07-27 14:49] LABS: HIV-1 Antigen p24 Non React (Non React); HIVR-1/2 Ab Non React (Non React)
[2017-07-27] MEDS ORDERED: CHLORASEPTIC MM PRN (22:42)
[2017-07-28] MEDS: TYLENOL PO PRN (00:10)
[2017-07-28] MEDS: HEPARIN SUB-Q SCH ×3 (06:13→21:33)
[2017-07-28] MEDS: FLAGYL PO SCH ×3 (06:13→21:33)
[2017-07-28 06:48] LABS: Mean Corpuscular HGB Conc 29 % (30-34); Platelet Count 203 K/mm3 (140-440); Red Blood Count 3.77 M/mm3 (3.65-5.03); White Blood Count 6.7 K/mm3 (4.5-11.0)
[2017-07-28 06:50] LABS: Hematocrit 25.2 % (30.3-42.9); Hemoglobin 7.4 gm/dl (10.1-14.3); Mean Corpuscular Hemoglobin 20 pg (28-32); Mean Corpuscular Volume 67 fl (79-97); Red Cell Distribution Width 20.9 % (13.2-15.2)
[2017-07-28] MEDS: VIBRAMYCIN PO SCH ×2 (09:24→21:33)
[2017-07-28] MEDS: ROCEPHIN/NS 2 GM/100 ML 2 GM/100 ML BAG IV SCH (10:25)
--- NOTE | 2017-07-28 11:29 | Progress Note ---
Assessment and Plan Assessment: 1) Sepsis:better, still fever. Etiology most likely PID. HIV neg. 2) PID: -CT scan of the abdomen and pelvis with IV contrast found to have a very large uterine fibroid with some mass effect upon the bladder. -Pelvic exam done that showed some mild faint yellowish discharge and cervical motion tenderness. -CRP=8.3 -VAGINAL CX from outside facility + Group B Strep 3) Uterine fibroids Plan: -follow-up blood cultures -continue ceftriaxon, flagyl and doxycycline for now -f/u GC, Chalmydia, RPR -upon discharge will continue doxycycline 100 mg po q12h and flagyl 500 mg po q12h for total [address] Berkowitz for your consultation, will follow up with you. Gi Sampson MD Infectious Diseases Specialist [facility] ([facility]) M [phone] O [phone] Subjective Date of service: 07/28/17 Principal diagnosis: PID Interval history: Feels better, tmax 100.8, some nausea, no diarrhea. Microbiology: Blood cultures: 07/26 ngtd Urine cultures: Wet prep: no club cells or yeast or trichomonas Vaginal cx from OSH + Strep group B Current Antimicrobials: Doxycycline Ceftriaxone Previous Antimicrobials: Objective - Exam Narrative Exam: General appearance: Alert in NAD, conversant Eyes: anicteric sclerae, moist conjunctivae; no lid-lag; PERRLA HENT: Atraumatic; oropharynx clear with moist mucous membranes and no mucosal ulcerations/no oral thrush; normal hard and soft palate. Neck: Trachea midline; supple, no thyromegaly or lymphadenopathy Lungs: CTA, with normal respiratory effort and no intercostal retractions CV: RRR, no murmurs Abdomen: Soft, +SP tenderness Extremities: No peripheral edema or extremity lymphadenopathy Skin: Normal temperature, turgor and texture; no rash, ulcers or subcutaneous nodules Psych: Appropriate affect, alert and oriented to person, place and time. Neuro: alert and oriented x 3. Moving all extermities Lines: No CVL / PICC - Constitutional Vitals: Vital Signs Temp Pulse Resp BP Pulse Ox 98.2 F 62 14 117/76 100 07/28/17 07:27 07/28/17 07:27 07/28/17 07:27 07/28/17 07:27 07/28/17 07:27 Temperature -Last 24 Hours Temperature 98.2 F Temperature 98.1 F Temperature 100.8 F Temperature 99.2 F - Labs CBC & Chem 7: 07/28/17 06:30 07/26/17 12:49 Labs: Abnormal lab results 07/27/17 07/28/17 Range/Units 14:04 06:30 Hgb 7.4 L (10.1-14.3) gm/dl Hct 25.2 L (30.3-42.9) % MCV 67 L (79-97) fl MCH 20 L (28-32) pg MCHC 29 L (30-34) % RDW 20.9 H (13.2-15.2) % C-Reactive Protein 8.30 H (0.00-1.30) mg/dL
--- NOTE | 2017-07-28 12:18 | Progress Note ---
<FEDE BARRETO - Last Filed: 07/28/17 12:23> Assessment and Plan Assessment and plan: Patient is a 47-year-old AAF who presented to the emergency department, one day ago with complaint of lower abdominal and/or pelvic pain with some nausea that has been going on for a few months but worsened since early yesterday morning. The pain got to be so bad that she has been having trouble walking. She feels as if the area is distended. She has a history of uterine fibroids. She did not take anything for her symptoms prior to presentation. The patient had a CT scan of the abdomen and pelvis with IV contrast at the [facility] and was found to have a very large uterine fibroid with some mass effect upon the bladder. At that time as well, the patient had a pelvic exam done that showed some mild faint yellowish discharge and cervical motion tenderness. The patient was started on Rocephin and Flagyl. Sepsis Improving, WBC WNL, neg fever Continue Rocephin Flagyl and Doxycycline per ID. Outside blood cultures preliminary results show Group B Strep In house Cultures pending. ID following Logistics Clerk Consult requested Acute PID Continue Rocephin Flagyl and Doxycycline. Cultures pending. G/C results pending ID following Logistics Clerk Consult requested Anemia Secondary to Menorrhagia Uterine fibroids. HH dropping, will transfuse if needed DVT prophylaxis Heparin SCDs History Interval history: Patient is laying comfortably in bed. Denies abdominal pain and headache at this time. She does however state that she's having a lot of pelvic pressure. She remains nauseous but denies vomiting. Hospitalist Physical - Constitutional Vitals: Temp Pulse Resp BP Pulse Ox 98.2 F 62 14 117/76 100 07/28/17 07:27 07/28/17 07:27 07/28/17 07:27 07/28/17 07:27 07/28/17 07:27 General appearance: Present: no acute distress, well-nourished - EENT Eyes: Present: PERRL, EOM intact ENT: hearing intact, dentition normal - Neck Neck: Present: supple, normal ROM - Respiratory Respiratory effort: normal Respiratory: bilateral: CTA - Cardiovascular Rhythm: regular Heart Sounds: Present: S1 & S2. Absent: systolic murmur, diastolic murmur, rub - Extremities Extremities: no ischemia, No edema Peripheral Pulses: within normal limits - Abdominal General gastrointestinal: soft, tender Localized gastrointestinal: tender: RLQ, LLQ - Integumentary Integumentary: Present: clear, warm, dry - Psychiatric Psychiatric: appropriate mood/affect, intact judgment & insight, memory intact, cooperative - Neurologic Neurologic: CNII-XII intact, moves all extremities - Allied Health Allied health notes reviewed: nursing Results - Labs CBC & Chem 7: 07/28/17 06:30 07/26/17 12:49 Labs: Laboratory Last Values WBC 6.7 K/mm3 (4.5-11.0) 07/28/17 06:30 RBC 3.77 M/mm3 (3.65-5.03) 07/28/17 06:30 Hgb 7.4 gm/dl (10.1-14.3) L 07/28/17 06:30 Hct 25.2 % (30.3-42.9) L 07/28/17 06:30 MCV 67 fl (79-97) L 07/28/17 06:30 MCH 20 pg (28-32) L 07/28/17 06:30 MCHC 29 % (30-34) L 07/28/17 06:30 RDW 20.9 % (13.2-15.2) H 07/28/17 06:30 Plt Count 203 K/mm3 (140-440) 07/28/17 06:30 Add Manual Diff Complete 07/26/17 12:49 Total Counted 100 07/26/17 12:49 Seg Neutrophils % Medical Office Receptionist 07/26/17 12:49 Seg Neuts % (Manual) 83.0 % (40.0-70.0) H 07/26/17 12:49 Band Neutrophils % 13.0 % 07/26/17 12:49 Lymphocytes % (Manual) 1.0 % (13.4-35.0) L 07/26/17 12:49 Reactive Lymphs % (Man) 0 % 07/26/17 12:49 Monocytes % (Manual) 3.0 % (0.0-7.3) 07/26/17 12:49 Eosinophils % (Manual) 0 % (0.0-4.3) 07/26/17 12:49 Basophils % (Manual) 0 % (0.0-1.8) 07/26/17 12:49 Metamyelocytes % 0 % 07/26/17 12:49 Myelocytes % 0 % 07/26/17 12:49 Promyelocytes % 0 % 07/26/17 12:49 Blast Cells % 0 % 07/26/17 12:49 Nucleated RBC % Not Reportable 07/26/17 12:49 Seg Neutrophils # Man 15.0 K/mm3 (1.8-7.7) H 07/26/17 12:49 Band Neutrophils # 2.4 K/mm3 07/26/17 12:49 Lymphocytes # (Manual) 0.2 K/mm3 (1.2-5.4) L 07/26/17 12:49 Abs React Lymphs (Man) 0.0 K/mm3 07/26/17 12:49 Monocytes # (Manual) 0.5 K/mm3 (0.0-0.8) 07/26/17 12:49 Eosinophils # (Manual) 0.0 K/mm3 (0.0-0.4) 07/26/17 12:49 Basophils # (Manual) 0.0 K/mm3 (0.0-0.1) 07/26/17 12:49 Metamyelocytes # 0.0 K/mm3 07/26/17 12:49 Myelocytes # 0.0 K/mm3 07/26/17 12:49 Promyelocytes # 0.0 K/mm3 07/26/17 12:49 Blast Cells # 0.0 K/mm3 07/26/17 12:49 WBC Morphology Not Reportable 07/26/17 12:49 Hypersegmented Neuts Not Reportable 07/26/17 12:49 Hyposegmented Neuts Not Reportable 07/26/17 12:49 Hypogranular Neuts Not Reportable 07/26/17 12:49 Smudge Cells Not Reportable 07/26/17 12:49 Toxic Granulation Not Reportable 07/26/17 12:49 Toxic Vacuolation Not Reportable 07/26/17 12:49 Dohle Bodies Not Reportable 07/26/17 12:49 Pelger-Huet Anomaly Not Reportable 07/26/17 12:49 Aishwarya Rods Not Reportable 07/26/17 12:49 Platelet Estimate Not Reportable 07/26/17 12:49 Clumped Platelets Not Reportable 07/26/17 12:49 Plt Clumps, EDTA Not Reportable 07/26/17 12:49 Large Platelets Not Reportable 07/26/17 12:49 Giant Platelets Not Reportable 07/26/17 12:49 Platelet Satelliting Not Reportable 07/26/17 12:49 Plt Morphology Comment Not Reportable 07/26/17 12:49 RBC Morphology Not Reportable 07/26/17 12:49 Dimorphic RBCs Not Reportable 07/26/17 12:49 Polychromasia Not Reportable 07/26/17 12:49 Hypochromasia 2+ 07/26/17 12:49 Poikilocytosis 1+ 07/26/17 12:49 Anisocytosis 2+ 07/26/17 12:49 Microcytosis 2+ 07/26/17 12:49 Macrocytosis Not Reportable 07/26/17 12:49 Spherocytes Not Reportable 07/26/17 12:49 Pappenheimer Bodies Not Reportable 07/26/17 12:49 Sickle Cells Not Reportable 07/26/17 12:49 Target Cells Not Reportable 07/26/17 12:49 Tear Drop Cells Not Reportable 07/26/17 12:49 Ovalocytes Not Reportable 07/26/17 12:49 Helmet Cells Not Reportable 07/26/17 12:49 [place] Bodies Not Reportable 07/26/17 12:49 [place] Rings Not Reportable 07/26/17 12:49 [place] Cells Not Reportable 07/26/17 12:49 Bite Cells Not Reportable 07/26/17 12:49 Crenated Cell Not Reportable 07/26/17 12:49 Elliptocytes Not Reportable 07/26/17 12:49 Acanthocytes (Spur) Not Reportable 07/26/17 12:49 Rouleaux Not Reportable 07/26/17 12:49 Hemoglobin C Crystals Not Reportable 07/26/17 12:49 Schistocytes Not Reportable 07/26/17 12:49 Malaria parasites Not Reportable 07/26/17 12:49 Pop Bodies Not Reportable 07/26/17 12:49 Hem Pathologist Commnt No 07/26/17 12:49 Sodium 137 mmol/L (137-145) 07/26/17 12:49 Potassium 3.7 mmol/L (3.6-5.0) 07/26/17 12:49 Chloride 100.4 mmol/L (98-107) 07/26/17 12:49 Carbon Dioxide 24 mmol/L (22-30) 07/26/17 12:49 Anion Gap 16 mmol/L 07/26/17 12:49 BUN 8 mg/dL (7-17) 07/26/17 12:49 Creatinine 0.6 mg/dL (0.7-1.2) L 07/26/17 12:49 Estimated GFR > 60 ml/min 07/26/17 12:49 BUN/Creatinine Ratio 13 % 07/26/17 12:49 Glucose 95 mg/dL (65-100) 07/26/17 12:49 Lactic Acid 1.00 mmol/L (0.7-2.0) 07/26/17 13:59 Calcium 8.2 mg/dL (8.4-10.2) L 07/26/17 12:49 Iron 14 ug/dL (37-170) L 07/27/17 06:39 TIBC 290 mcg/dL (250-450) 07/27/17 06:39 % Saturation 4.83 % 07/27/17 06:39 Transferrin 264 mg/dl (192-382) 07/27/17 06:39 Total Bilirubin 0.60 mg/dL (0.1-1.2) 07/26/17 12:49 AST 16 units/L (5-40) 07/26/17 12:49 ALT 7 units/L (7-56) 07/26/17 12:49 Alkaline Phosphatase 49 units/L (35-129) 07/26/17 12:49 C-Reactive Protein 8.30 mg/dL (0.00-1.30) H 07/27/17 14:04 Total Protein 6.6 g/dL (6.3-8.2) 07/26/17 12:49 Albumin 3.9 g/dL (3.9-5) 07/26/17 12:49 Albumin/Globulin Ratio 1.4 % 07/26/17 12:49 Lipase 21 units/L (13-60) 07/26/17 12:49 Vitamin B12 289.3 pg/mL (211-911) 07/27/17 06:39 HCG, Qual Negative (Negative) 07/26/17 13:53 Urine Color Yellow (Yellow) 07/27/17 12:47 Urine Turbidity Clear (Clear) 07/27/17 12:47 Urine pH 6.0 (5.0-7.0) 07/27/17 12:47 Ur Specific Decker 1.012 (1.003-1.030) 07/27/17 12:47 Urine Protein 30 mg/dl mg/dL (Negative) 07/27/17 12:47 Urine Glucose (UA) Neg mg/dL (Negative) 07/27/17 12:47 Urine Ketones Neg mg/dL (Negative) 07/27/17 12:47 Urine Blood Neg (Negative) 07/27/17 12:47 Urine Nitrite Neg (Negative) 07/27/17 12:47 Urine Bilirubin Neg (Negative) 07/27/17 12:47 Urine Urobilinogen < 2.0 mg/dL (<2.0) 07/27/17 12:47 Ur Leukocyte Esterase Tr (Negative) 07/27/17 12:47 Urine WBC (Auto) 4.0 /HPF (0.0-6.0) 07/27/17 12:47 Urine RBC (Auto) < 1.0 /HPF (0.0-6.0) 07/27/17 12:47 U Epithel Cells (Auto) 1.0 /HPF (0-13.0) 07/27/17 12:47 Urine Mucus Few /HPF 07/27/17 12:47 HIV 1&2 Antibody Rapid Non react (Non React) 07/27/17 14:04 HIV P24 Antigen Non react (Non React) 07/27/17 14:04 <LINDA TAPIA - Last Filed: 07/28/17 22:34> Assessment and Plan Assessment and plan: I saw and evaluated the patient. I agree with the findings and the plan of care as documented in the physician retail assistant~note, with the following corrections and additions. D/W with ID and also to speak [place] physicians who states that 1 of 4 bottiles , check surrounding Hospitalist Physical - Constitutional Vitals: Temp Pulse Resp BP Pulse Ox 99.0 F 62 14 102/74 100 07/28/17 15:40 07/28/17 07:27 07/28/17 15:40 07/28/17 15:40 07/28/17 07:27 Results - Labs CBC & Chem 7: 07/28/17 06:30 07/26/17 12:49 Labs: Laboratory Last Values WBC 6.7 K/mm3 (4.5-11.0) 07/28/17 06:30 RBC 3.77 M/mm3 (3.65-5.03) 07/28/17 06:30 Hgb 7.4 gm/dl (10.1-14.3) L 07/28/17 06:30 Hct 25.2 % (30.3-42.9) L 07/28/17 06:30 MCV 67 fl (79-97) L 07/28/17 06:30 MCH 20 pg (28-32) L 07/28/17 06:30 MCHC 29 % (30-34) L 07/28/17 06:30 RDW 20.9 % (13.2-15.2) H 07/28/17 06:30 Plt Count 203 K/mm3 (140-440) 07/28/17 06:30 Add Manual Diff Complete 07/26/17 12:49 Total Counted 100 07/26/17 12:49 Seg Neutrophils % Medical Office Receptionist 07/26/17 12:49 Seg Neuts % (Manual) 83.0 % (40.0-70.0) H 07/26/17 12:49 Band Neutrophils % 13.0 % 07/26/17 12:49 Lymphocytes % (Manual) 1.0 % (13.4-35.0) L 07/26/17 12:49 Reactive Lymphs % (Man) 0 % 07/26/17 12:49 Monocytes % (Manual) 3.0 % (0.0-7.3) 07/26/17 12:49 Eosinophils % (Manual) 0 % (0.0-4.3) 07/26/17 12:49 Basophils % (Manual) 0 % (0.0-1.8) 07/26/17 12:49 Metamyelocytes % 0 % 07/26/17 12:49 Myelocytes % 0 % 07/26/17 12:49 Promyelocytes % 0 % 07/26/17 12:49 Blast Cells % 0 % 07/26/17 12:49 Nucleated RBC % Not Reportable 07/26/17 12:49 Seg Neutrophils # Man 15.0 K/mm3 (1.8-7.7) H 07/26/17 12:49 Band Neutrophils # 2.4 K/mm3 07/26/17 12:49 Lymphocytes # (Manual) 0.2 K/mm3 (1.2-5.4) L 07/26/17 12:49 Abs React Lymphs (Man) 0.0 K/mm3 07/26/17 12:49 Monocytes # (Manual) 0.5 K/mm3 (0.0-0.8) 07/26/17 12:49 Eosinophils # (Manual) 0.0 K/mm3 (0.0-0.4) 07/26/17 12:49 Basophils # (Manual) 0.0 K/mm3 (0.0-0.1) 07/26/17 12:49 Metamyelocytes # 0.0 K/mm3 07/26/17 12:49 Myelocytes # 0.0 K/mm3 07/26/17 12:49 Promyelocytes # 0.0 K/mm3 07/26/17 12:49 Blast Cells # 0.0 K/mm3 07/26/17 12:49 WBC Morphology Not Reportable 07/26/17 12:49 Hypersegmented Neuts Not Reportable 07/26/17 12:49 Hyposegmented Neuts Not Reportable 07/26/17 12:49 Hypogranular Neuts Not Reportable 07/26/17 12:49 Smudge Cells Not Reportable 07/26/17 12:49 Toxic Granulation Not Reportable 07/26/17 12:49 Toxic Vacuolation Not Reportable 07/26/17 12:49 Dohle Bodies Not Reportable 07/26/17 12:49 Pelger-Huet Anomaly Not Reportable 07/26/17 12:49 Aishwarya Rods Not Reportable 07/26/17 12:49 Platelet Estimate Not Reportable 07/26/17 12:49 Clumped Platelets Not Reportable 07/26/17 12:49 Plt Clumps, EDTA Not Reportable 07/26/17 12:49 Large Platelets Not Reportable 07/26/17 12:49 Giant Platelets Not Reportable 07/26/17 12:49 Platelet Satelliting Not Reportable 07/26/17 12:49 Plt Morphology Comment Not Reportable 07/26/17 12:49 RBC Morphology Not Reportable 07/26/17 12:49 Dimorphic RBCs Not Reportable 07/26/17 12:49 Polychromasia Not Reportable 07/26/17 12:49 Hypochromasia 2+ 07/26/17 12:49 Poikilocytosis 1+ 07/26/17 12:49 Anisocytosis 2+ 07/26/17 12:49 Microcytosis 2+ 07/26/17 12:49 Macrocytosis Not Reportable 07/26/17 12:49 Spherocytes Not Reportable 07/26/17 12:49 Pappenheimer Bodies Not Reportable 07/26/17 12:49 Sickle Cells Not Reportable 07/26/17 12:49 Target Cells Not Reportable 07/26/17 12:49 Tear Drop Cells Not Reportable 07/26/17 12:49 Ovalocytes Not Reportable 07/26/17 12:49 Helmet Cells Not Reportable 07/26/17 12:49 [place] Bodies Not Reportable 07/26/17 12:49 [place] Rings Not Reportable 07/26/17 12:49 [place] Cells Not Reportable 07/26/17 12:49 Bite Cells Not Reportable 07/26/17 12:49 Crenated Cell Not Reportable 07/26/17 12:49 Elliptocytes Not Reportable 07/26/17 12:49 Acanthocytes (Spur) Not Reportable 07/26/17 12:49 Rouleaux Not Reportable 07/26/17 12:49 Hemoglobin C Crystals Not Reportable 07/26/17 12:49 Schistocytes Not Reportable 07/26/17 12:49 Malaria parasites Not Reportable 07/26/17 12:49 Pop Bodies Not Reportable 07/26/17 12:49 Hem Pathologist Commnt No 07/26/17 12:49 Sodium 137 mmol/L (137-145) 07/26/17 12:49 Potassium 3.7 mmol/L (3.6-5.0) 07/26/17 12:49 Chloride 100.4 mmol/L (98-107) 07/26/17 12:49 Carbon Dioxide 24 mmol/L (22-30) 07/26/17 12:49 Anion Gap 16 mmol/L 07/26/17 12:49 BUN 8 mg/dL (7-17) 07/26/17 12:49 Creatinine 0.6 mg/dL (0.7-1.2) L 07/26/17 12:49 Estimated GFR > 60 ml/min 07/26/17 12:49 BUN/Creatinine Ratio 13 % 07/26/17 12:49 Glucose 95 mg/dL (65-100) 07/26/17 12:49 Lactic Acid 1.00 mmol/L (0.7-2.0) 07/26/17 13:59 Calcium 8.2 mg/dL (8.4-10.2) L 07/26/17 12:49 Iron 14 ug/dL (37-170) L 07/27/17 06:39 TIBC 290 mcg/dL (250-450) 07/27/17 06:39 % Saturation 4.83 % 07/27/17 06:39 Transferrin 264 mg/dl (192-382) 07/27/17 06:39 Total Bilirubin 0.60 mg/dL (0.1-1.2) 07/26/17 12:49 AST 16 units/L (5-40) 07/26/17 12:49 ALT 7 units/L (7-56) 07/26/17 12:49 Alkaline Phosphatase 49 units/L (35-129) 07/26/17 12:49 C-Reactive Protein 8.30 mg/dL (0.00-1.30) H 07/27/17 14:04 Total Protein 6.6 g/dL (6.3-8.2) 07/26/17 12:49 Albumin 3.9 g/dL (3.9-5) 07/26/17 12:49 Albumin/Globulin Ratio 1.4 % 07/26/17 12:49 Lipase 21 units/L (13-60) 07/26/17 12:49 Vitamin B12 289.3 pg/mL (211-911) 07/27/17 06:39 HCG, Qual Negative (Negative) 07/26/17 13:53 Urine Color Yellow (Yellow) 07/27/17 12:47 Urine Turbidity Clear (Clear) 07/27/17 12:47 Urine pH 6.0 (5.0-7.0) 07/27/17 12:47 Ur Specific Decker 1.012 (1.003-1.030) 07/27/17 12:47 Urine Protein 30 mg/dl mg/dL (Negative) 07/27/17 12:47 Urine Glucose (UA) Neg mg/dL (Negative) 07/27/17 12:47 Urine Ketones Neg mg/dL (Negative) 07/27/17 12:47 Urine Blood Neg (Negative) 07/27/17 12:47 Urine Nitrite Neg (Negative) 07/27/17 12:47 Urine Bilirubin Neg (Negative) 07/27/17 12:47 Urine Urobilinogen < 2.0 mg/dL (<2.0) 07/27/17 12:47 Ur Leukocyte Esterase Tr (Negative) 07/27/17 12:47 Urine WBC (Auto) 4.0 /HPF (0.0-6.0) 07/27/17 12:47 Urine RBC (Auto) < 1.0 /HPF (0.0-6.0) 07/27/17 12:47 U Epithel Cells (Auto) 1.0 /HPF (0-13.0) 07/27/17 12:47 Urine Mucus Few /HPF 07/27/17 12:47 RPR Nonreactive (Nonreactive) 07/27/17 14:04 HIV 1&2 Antibody Rapid Non react (Non React) 07/27/17 14:04 HIV P24 Antigen Non react (Non React) 07/27/17 14:04
--- NOTE | 2017-07-28 15:13 | Consultation ---
History of Present Illness Consult date: 07/27/17 Reason for consult: pelvic pain History of present illness: Patient is a 47 year old female who presents with a complaint of ongoing pelvic pain for the last 4-6 months that became suddenly worse on this past Tuesday morning. Patient was seeking care in [facility] and has recently relocated to [place]. Although she has known fibroids, she has not seen a doctor here. 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 Social history: Medications and Allergies Allergies Allergy/AdvReac Type Severity Reaction Status Date / Time No Known Allergies Allergy Verified 07/26/17 12:44 Home Medications Medication Instructions Recorded Confirmed Last Taken Type No Known Home Medications [No 07/26/17 07/26/17 Unknown History Reported Home Medications] Active Meds: Active Medications Acetaminophen (Tylenol) 650 mg PO Q4H PRN PRN Reason: Pain, Mild (1-3) Last Admin: 07/28/17 00:10 Dose: 650 mg Doxycycline Hyclate (Vibramycin) 100 mg PO BID [facility] Last Admin: 07/28/17 09:24 Dose: 100 mg Heparin Sodium (Porcine) (Heparin) 5,000 unit SUB-Q Q8HR [facility] Last Admin: 07/28/17 13:44 Dose: 5,000 unit Ceftriaxone Sodium (Rocephin/Ns 2 Gm/100 Ml) 2 gm in 100 mls @ 200 mls/hr IV Q24HR [facility] PRN Reason: Protocol Last Admin: 07/28/17 10:25 Dose: 200 mls/hr Metronidazole (Flagyl) 500 mg PO Q8HR [facility] Last Admin: 07/28/17 13:43 Dose: 500 mg Phenol (Chloraseptic) 1 spray MM PRN PRN PRN Reason: Sore Throat Last Admin: 07/27/17 23:11 Dose: 1 spray Review of Systems All systems: negative Gastrointestinal: nausea, constipation, dyspepsia/bloating Genitourinary: other (frequency and irregular menses) Rectal Exam: deferred Endocrine: heat intolerance - Vital Signs Vital signs: Vital Signs Pulse Ox 100 07/26/17 12:57 Temp Pulse Resp BP Pulse Ox 98.2 F 62 14 117/76 100 07/28/17 07:27 07/28/17 07:27 07/28/17 07:27 07/28/17 07:27 07/28/17 07:27 - Physical Exam Breasts: Positive: deferred Lungs: Positive: Clear to auscultation, Normal air movement Abdomen: Positive: normal appearance, mass (palpable just below umbilicus to the right, tender to palpation, consistent with uterine fibroids) Genitourinary (Female): Positive: normal external genitalia Uterus: Positive: enlarged, nodular, tender Results Result Diagrams: 07/28/17 06:30 07/26/17 12:49 Abnormal lab results 07/28/17 Range/Units 06:30 Hgb 7.4 L (10.1-14.3) gm/dl Hct 25.2 L (30.3-42.9) % MCV 67 L (79-97) fl MCH 20 L (28-32) pg MCHC 29 L (30-34) % RDW 20.9 H (13.2-15.2) % All other labs normal. Assessment and Plan Patient here with known uterine fibroids and obvious infection which is suspected to be PID although patient denies sexual interaction with anyone except . patient most likely has a necrosing fibroid which is causing pain, tenderness and relative bandemia. Surgical intervention is not warranted at this time and patient is ok to follow up as outpatient for surgery once infection is resolved.
[2017-07-28 23:44] VITALS: BP 115/72
[2017-07-29] MEDS ORDERED: ZOFRAN IV PRN (03:57)
[2017-07-29] MEDS ORDERED: PERCOCET 5/325 PO ONE (04:00)
[2017-07-29] MEDS: FLAGYL PO SCH ×2 (05:39→14:57)
[2017-07-29] MEDS: HEPARIN SUB-Q SCH ×2 (05:39→14:58)
[2017-07-29 06:16] LABS: Anion Gap 15 mmol/L; BUN/Creatinine Ratio 13; Blood Urea Nitrogen 9 mg/dL (7-17); Calcium 8.5 mg/dL (8.4-10.2); Carbon Dioxide 25 mmol/L (22-30); Glucose 108 mg/dL (65-100); Potassium 3.9 mmol/L (3.6-5.0); Sodium 141 mmol/L (137-145)
[2017-07-29 08:22] LABS: Basophils % (Auto) 0.9 % (0.0-1.8); Eosinophils % (Auto) 6.2 % (0.0-4.3); Hematocrit 25.1 % (30.3-42.9); Hemoglobin 7.4 gm/dl (10.1-14.3); Mean Corpuscular HGB Conc 30 % (30-34); Platelet Count 207 K/mm3 (140-440); White Blood Count 4.3 K/mm3 (4.5-11.0)
[2017-07-29 08:33] LABS: Mean Corpuscular Hemoglobin 20 pg (28-32); Mean Corpuscular Volume 66 fl (79-97); Red Cell Distribution Width 21.2 % (13.2-15.2)
[2017-07-29] MEDS: ROCEPHIN/NS 2 GM/100 ML 2 GM/100 ML BAG IV SCH (09:28)
[2017-07-29] MEDS: VIBRAMYCIN PO SCH (09:28)
--- NOTE | 2017-07-29 12:02 | Progress Note ---
Assessment and Plan Assessment: 1) Sepsis: resolved. Etiology most likely due to complicated PID with Strep Group B bacteremia. 2) PID: -CT scan of the abdomen and pelvis with IV contrast found to have a very large uterine fibroid with some mass effect upon the bladder. -Pelvic exam done that showed some mild faint yellowish discharge and cervical motion tenderness. -CRP=8.3 -VAGINAL CX from outside facility + Group B Strep -HIV neg / RPR neg. 3) Strep groupB bacteremia ? from PID. Repeat blood cx negative 3) Uterine fibroids Plan: -continue ceftriaxone and doxycycline for now -stop flagyl -f/u GC, Chlamydia -upon discharge will continue amoxicillin 500 mg PO TID and doxycycline 100 mg po q12h for total 14 days -needs WHAT [employer]IT[employer] MEAN f/u I will be off the weekend. I will be available over the phone. Thank you Dr Berkowitz for your consultation, will follow up with you. Gi Sampson MD Infectious Diseases Specialist [facility] [phone] O [phone] Subjective Date of service: 07/29/17 Principal diagnosis: PID Interval history: Feels better, no fever, no nausea, no diarrhea. Microbiology: Blood cultures: 07/26 ngtd 07/26 Strep Group B 1 of 4 bottles Urine cultures: Wet prep: no club cells or yeast or trichomonas Vaginal cx from OSH + Strep group B Current Antimicrobials: Doxycycline Ceftriaxone Previous Antimicrobials: Objective - Exam Narrative Exam: General appearance: Alert in NAD, conversant Eyes: anicteric sclerae, moist conjunctivae; no lid-lag; PERRLA HENT: Atraumatic; oropharynx clear with moist mucous membranes and no mucosal ulcerations/no oral thrush; normal hard and soft palate. Neck: Trachea midline; supple, no thyromegaly or lymphadenopathy Lungs: CTA, with normal respiratory effort and no intercostal retractions CV: RRR, no murmurs Abdomen: Soft, +SP tenderness Extremities: No peripheral edema or extremity lymphadenopathy Skin: Normal temperature, turgor and texture; no rash, ulcers or subcutaneous nodules Psych: Appropriate affect, alert and oriented to person, place and time. Neuro: alert and oriented x 3. Moving all extermities Lines: No CVL / PICC - Constitutional Vitals: Vital Signs Temp Pulse Resp BP Pulse Ox 98.6 F 60 18 115/72 100 07/28/17 23:40 07/28/17 23:40 07/28/17 23:40 07/28/17 23:40 07/28/17 23:40 Temperature -Last 24 Hours Temperature 98.6 F Temperature 99.0 F - Labs CBC & Chem 7: 07/29/17 07:59 07/29/17 04:46 Labs: Abnormal lab results 07/29/17 07/29/17 Range/Units 04:46 07:59 WBC 4.3 L (4.5-11.0) K/mm3 Hgb 7.4 L (10.1-14.3) gm/dl Hct 25.1 L (30.3-42.9) % MCV 66 L (79-97) fl MCH 20 L (28-32) pg RDW 21.2 H (13.2-15.2) % Lymph % (Auto) 36.6 H (13.4-35.0) % Glenn % (Auto) 7.4 H (0.0-7.3) % Eos % (Auto) 6.2 H (0.0-4.3) % Glucose 108 H (65-100) mg/dL
--- NOTE | 2017-07-29 14:40 | Discharge Summary ---
<FEDE BARRETO - Last Filed: 07/29/17 15:52> Providers - Providers Date of Admission: 07/26/17 17:44 Attending physician: LINDA TAPIA MD 07/27/17 06:24 Consult to Physician [CONS] Routine Consulting Provider: CARLA ANTONIO Reason For Exam: pid-abx choice Place consult to:: dr. hamilton Notified:: Phone number called:: [phone] Was contact made?: No Time called:: 09:43 07/28/17 15:16 Consult to Physician [CONS] Routine Consulting Provider: RODRIGO OTT Reason For Exam: fibroids Place consult to:: Dr. Ott Notified:: Dr. Ott saw the patient today [id number] Primary care physician: [employer] PRO[employer] Hospitalization Reason for admission: Pelvic/ abdominal pain Condition: Stable Hospital course: Patient is a 47-year-old AAF who presented to the emergency department with complaints of lower abdominal and/or pelvic pain with some nausea that has been going on for a few months but had worsened. Patient was coming from an outside facility where blood cultures were drawn and showed Group B Strep. Transvaginal and Pelvic US revealed uterine enlargement with large fundal fibroid. HIV and RPR were nonreactive. Wet prep revealed no Trichomonas. Patient was treated with Rocephin, Flagyl and Doxycyline for Sepsis and Acute PID Disposition: DC-01 TO HOME OR SELFCARE - Discharge Diagnoses (1) Abdominal pain Status: Acute QualifierTitle: Abdominal location: lower abdomen, unspecified Qualified Code(s): R10.30 - Lower abdominal pain, unspecified (2) Anemia Status: Chronic QualifierTitle: Anemia type: unspecified type Qualified Code(s): D64.9 - Anemia, unspecified (3) PID (acute pelvic inflammatory disease) Status: Acute (4) Pelvic pain Status: Acute Core Measure Documentation - Palliative Care Palliative Care/ Comfort Measures: Not Applicable - Core Measures Any of the following diagnoses?: none Exam - Constitutional Vitals: Temp Pulse Resp BP Pulse Ox 98.6 F 60 18 115/72 100 07/28/17 23:40 07/28/17 23:40 07/28/17 23:40 07/28/17 23:40 07/28/17 23:40 General appearance: Present: no acute distress - EENT Eyes: Present: PERRL ENT: hearing intact, clear oral mucosa - Neck Neck: Present: supple, normal ROM - Respiratory Respiratory effort: normal Respiratory: bilateral: CTA - Cardiovascular Heart Sounds: Present: S1 & S2. Absent: rub, click - Extremities Extremities: pulses symmetrical, No edema Peripheral Pulses: within normal limits - Abdominal General gastrointestinal: Present: tender, non-distended Localized gastrointestinal: tender: diffuse Female genitourinary: Present: deferred - Rectal Rectal Exam: deferred - Integumentary Integumentary: Present: clear, warm, dry - Musculoskeletal Musculoskeletal: gait normal, strength equal bilaterally - Psychiatric Psychiatric: appropriate mood/affect, intact judgment & insight - Neurologic Neurologic: CNII-XII intact, moves all extremities - Allied Health Allied health notes reviewed: nursing Plan Activity: no restrictions, advance as tolerated, fall precautions Weight Bearing Status: Weight Bear as Tolerated Diet: low fat, low cholesterol, low salt Follow up with: JUNITO ROWLEY MD [Primary Care Provider] - 3-5 Days RODRIGO OTT MD [Staff Physician] - 7 Days Forms: Work/School Release Form Prescriptions: Amoxicillin 500 mg PO TID 14 Days #90 capsule Doxycycline [Vibramycin CAP] 100 mg PO Q12HR 14 Days #28 capsule Ferrous Sulfate [Feosol 325 MG tab] 325 mg PO TID #90 tablet traMADol [Ultram] 50 mg PO Q6HR PRN #30 tablet PRN Reason: Pain <LINDA TAPIA - Last Filed: 07/29/17 17:14> Providers - Providers Date of Admission: 07/26/17 17:44 Attending physician: LINDA TAPIA MD 07/27/17 06:24 Consult to Physician [CONS] Routine Consulting Provider: CARLA ANTONIO Reason For Exam: pid-abx choice Place consult to:: dr. hamilton Notified:: Phone number called:: [phone] Was contact made?: No Time called:: 09:43 07/28/17 15:16 Consult to Physician [CONS] Routine Consulting Provider: RODRIGO OTT Reason For Exam: fibroids Place consult to:: Dr. Ott Notified:: Dr. Ott saw the patient today [id number] Primary care physician: [employer] PRO[employer]MER Hospitalization Hospital course: I saw and evaluated the patient. I agree with the findings and the plan of care as documented in the Physician Plant And Maintenance Technician's~note, with the following corrections and additions. Discharge diagnosis Uterine Fibroid PID Group B strep Bactermia Time spent for discharge: 35 MINS Exam - Constitutional Vitals: Temp Pulse Resp BP Pulse Ox 98.6 F 60 18 115/72 100 07/28/17 23:40 07/28/17 23:40 07/28/17 23:40 07/28/17 23:40 07/28/17 23:40
== END 2017-07-29 18:30 | disposition home or self-care (01) | DRG 872 ==
LOC: ED 12:30 → 3A 17:44
PROVIDERS: ADMIT Internal Medicine; ATTEND Internal Medicine
DX: A41.9 Sepsis, unspecified organism (principal); D25.9 Leiomyoma of uterus, unspecified; R10.2 Pelvic and perineal pain; N73.9 Female pelvic inflammatory disease, unspecified; D64.9 Anemia, unspecified; B95.1 Streptococcus, group B, as the cause of diseases classified elsewhere; Z79.899 Other long term (current) drug therapy
CPT/HCPCS: 36415; 76830; 76856; 80048; 80053; 81001; 82140; 82607; 82747; 83550; 83690; 84703; 85007; 85025; 85027; 86140; 86592; 87040; 87210; 87591; 87806; 96361; 96374; 99285; J0696; J1644; J2405; J3010; J7030